=== PATIENT | female | born 1990 | race Caucasian/White ===

== ENCOUNTER → 2016-08-21 | Outpatient (CLI) | payer OTHER ==
[~2016-08-21] MED LIST: METO100T14 PO; PRENTAB26 PO
[2016-08-21 19:27] LABS: GTGD 50 Grams
== END | disposition home or self-care (01) ==
LOC: C.LAB1850 16:06
PROVIDERS: ATTEND Obstetrics & Gynecology
DX: O16.9 Unspecified maternal hypertension, unspecified trimester (principal)

== ENCOUNTER → 2016-11-13 | Outpatient (CLI) | payer OTHER ==
[2016-11-13 17:38] LABS: HEMATOCRIT 36.7 % (37-47)
[2016-11-13 18:36] LABS: GTGD 50 Grams
== END | disposition home or self-care (01) ==
LOC: C.LAB1850 15:55
PROVIDERS: ATTEND Obstetrics & Gynecology
DX: O16.3 Unspecified maternal hypertension, third trimester (principal)

== ENCOUNTER → 2016-11-13 | Outpatient (CLI) | payer OTHER ==
[2016-11-13 19:42] LABS: URINE APPEARANCE CLEAR (CLEAR); URINE BILIRUBIN NEG (NEG); URINE COLOR YELLOW; URINE EPITHELIAL CELL AUTO >30 /lpf (0-5); URINE NITRITE NEG (NEG); URINE PH 6.5 (4.5-7.5); UROBILINOGEN NEG (NEG)
[2016-11-13 19:46] LABS: MANUAL MICROSCOPIC REQUIRED? NO; REVIEW REQ? NO
== END | disposition home or self-care (01) ==
LOC: C.LABSPEC 17:41
PROVIDERS: ATTEND Obstetrics & Gynecology
DX: O16.3 Unspecified maternal hypertension, third trimester (principal)

== ENCOUNTER → 2016-11-20 | Outpatient (CLI) | payer OTHER ==
[2016-11-20 18:39] LABS: URINE TOTAL PROTEIN 6.2 mg/dl (0-11.9)
[2016-11-20 19:47] LABS: CREATININE 0.62 mg/dl (0.6-1.2); URINE TOTAL PROTEIN CALC 117.8 mg/24 hr (0-149.1)
== END | disposition home or self-care (01) ==
LOC: C.LABPVFM 13:19
PROVIDERS: ATTEND Obstetrics & Gynecology
DX: O16.3 Unspecified maternal hypertension, third trimester (principal); Z3A.00 Weeks of gestation of pregnancy not specified

== ENCOUNTER → 2017-01-08 | Outpatient (CLI) | payer OTHER | END | disposition home or self-care (01) | LOC: C.LABSPEC 17:39 | PROVIDERS: ATTEND Obstetrics & Gynecology | DX: O09.93 Supervision of high risk pregnancy, unspecified, third trimester (principal); Z3A.00 Weeks of gestation of pregnancy not specified ==

== ENCOUNTER 2017-01-30 06:47 | Inpatient (IN) | payer OTHER ==
[~2017-01-30] VITALS: Ht 160 cm; Wt 125.0 kg
[2017-01-30] MEDS ORDERED: BUPIVACAINE 0.25% 30 ML VIAL ONE (07:22)
[2017-01-30] MEDS ORDERED: FENTANYL 2MCG/ML ROPIV 1.25MG/ML 100ML BAG EPI ONE (07:22)
[2017-01-30] MEDS ORDERED: EpHEDrine SULFATE INJ 50 MG/ML AMP ONE (07:22)
[2017-01-30 07:32] LABS: BASO % 0.2 %; BASO ABS # 0.02 K/uL (0-0.2); EOS % 0.8 %; HEMATOCRIT 37.6 % (37-47); IG% 0.4 %; LYMPH ABS # 2.28 K/uL (1.2-3.4); MEAN CORPUSCULAR HEMOGLOBIN 31.6 pg (25-34); MEAN PLATELET VOLUME 11.7 fL (7.4-10.4); NEUT % 66.6 %; PLATELET COUNT 197 K/uL (130-400); RED BLOOD COUNT 4.18 M/uL (4.2-5.4); WHITE BLOOD COUNT 9.93 K/uL (4.8-10.8)
[2017-01-30] MEDS: FENTANYL CITRATE INJ 50 MCG/1 ML 2 ML VIAL ONE ×2 (07:33→08:07)
[2017-01-30] MEDS: LACTATED RINGER'S 1000ML 1,000 ML IV SCH ×2 (07:33→09:56)
[2017-01-30] MEDS ORDERED: LABETALOL HCL IV 5 MG/ML 20ML IV PRN (07:45)
[2017-01-30 07:51] LABS: ALT/SGPT 17 U/L (12-78); BLOOD UREA NITROGEN 15 mg/dl (7-18); BUN/CREATININE RATIO 18.8 (10-20); CALCIUM 9.1 mg/dl (8.5-10.1); CARBON DIOXIDE 18 mmol/L (21-32); CHLORIDE 107 mmol/L (98-107); CREATININE 0.77 mg/dl (0.60-1.20); GLUCOSE 90 mg/dl (70-99); POTASSIUM 3.6 mmol/L (3.5-5.1); SODIUM 138 mmol/L (136-145)
[2017-01-30 07:54] LABS: ALB/GLOB RATIO 0.8 (0.9-2); ALKALINE PHOSPHATASE 134 U/L (45-117); AST/SGOT 16 U/L (15-37)
[2017-01-30 08:20] VITALS: Ht 160 cm; Wt 125.0 kg
[2017-01-30 08:46] LABS: COMPLETE YES; MEAN CORPUSCULAR HGB CONC 35.1 g/dl (32-36)
[2017-01-30] MEDS ORDERED: LACTATED RINGER'S 1000ML 500 ML IV PRN (09:14)
[2017-01-30] MEDS ORDERED: NALOXONE HCL INJ 1 MG in SODIUM CHLORIDE 0.9% 1000ML 1,000 ML IV PRN (09:14)
[2017-01-30] MEDS ORDERED: ONDANSETRON INJ 2 MG/ML 2 ML VIAL IV PRN (09:15)
[2017-01-30] MEDS ORDERED: NALOXONE HCL INJ 0.4 MG/1 ML VIAL/CARP IV PRN (09:15)
[2017-01-30] MEDS ORDERED: NALBUPHINE HCL INJ 10 MG/ML AMP IV PRN (09:15)
[2017-01-30] MEDS ORDERED: FENTANYL 2MCG/ML ROPIV 1.25MG/ML 100ML BAG EPI PRN (09:15)
[2017-01-30] MEDS ORDERED: PROMETHAZINE HCL INJ 6.25 MG in SODIUM CHLORIDE 0.9% 50ML 50 ML IV PRN (09:15)
[2017-01-30] MEDS ORDERED: EpHEDrine SULFATE INJ 50 MG/ML AMP IV PRN (09:15)
[2017-01-30] MEDS ORDERED: DiphenhydrAMINE HCL 50 MG/ML VIAL IV PRN (09:15)
--- NOTE | 2017-01-30 09:52 | Medical Student: [facility] ---
Medical Student Progress Note Date of Service Jan 30, 2017. Progress Note Kathy is a 26 year old with an BANDAR of 02/04/17 who presented this morning at 0615 for contractions. She is doing well and has received an epidural. Cx is 8.5/100/+[address] Dunn. FHM shows a baseline heart rate of 145 bpm. Moderate variability. No accels or decels present. [place] shows contractions occurring every 4 minutes.
[2017-01-30] MEDS ORDERED: OXYTOCIN 30 UNITS/500ML NSS IV ONE (12:16)
[2017-01-30] MEDS ORDERED: BENZOCAINE 20% AER SPR 82.5 GM CAN EXT PRN (13:00)
[2017-01-30] MEDS ORDERED: HYDROCORTISONE ACETATE 25 MG SUPP PR PRN (13:00)
[2017-01-30] MEDS ORDERED: OXYCODONE/ACETAMINOPHEN 5-325 TAB PO PRN (13:00)
[2017-01-30] MEDS ORDERED: IBUPROFEN 600 MG TAB PO PRN (13:00)
[2017-01-30] MEDS ORDERED: OXYTOCIN 30 UNITS/500ML NSS IV PRN (13:00)
[2017-01-30] MEDS ORDERED: SUPERCREAM 0.870 % 15GM JAR EXT PRN (13:00)
[2017-01-30] MEDS ORDERED: LANOLIN OINT EXT PRN ×2 (13:00)
--- NOTE | 2017-01-30 13:39 | DELIVERY SUMMARY ---
DATE OF OPERATION: 01/30/2017 DELIVERING SURGEON: Dr. Dunn. PRE-DELIVERY DIAGNOSES: 1. Term intrauterine . 2. Chronic hypertension. 3. Spontaneous labor. POST-DELIVERY DIAGNOSES: Same. PROCEDURE: Spontaneous vaginal delivery and repair of first degree peroneal and periurethral lacerations. ESTIMATED BLOOD LOSS: 300 mL. FINDINGS: Viable male with Apgars 9 and 10, weight pending. Please see nursery records. DESCRIPTION OF DELIVERY: The patient progressed to complete with epidural anesthesia and began to push. She spontaneously vaginally delivered a viable male from the cephalic presentation. The head delivered in left occiput anterior position followed by the anterior then posterior shoulders then body. The baby was placed on mother's abdomen where the umbilical cord was noted to be short so therefore the cord was doubly clamped and cut immediately. Cord blood was obtained. The placenta then delivered spontaneously intact with a 3-vessel cord. The uterus became firm. Pitocin was given. The vagina and uterus were stripped of all clots and debris. The cervix, vagina, and perineum were inspected and a first degree laceration as well as periurethral laceration were noted. These were repaired in standard fashion with 3-0 Vicryl in the perineal laceration and 4-0 Vicryl at the periurethral. The periurethral laceration was repaired with a red rubber catheter in the urethra to note correct anatomy. Excellent hemostasis was achieved. The mother and baby tolerated the delivery well. Sponge, instrument and needle counts were correct x2 at the conclusion of the delivery. I attest to the content of the Intraoperative Record and any orders documented therein. Any exception s are noted below.
--- NOTE | 2017-01-30 13:47 | Anesthesia Procedure Note ---
Anesthesia Epidural Removal Nt Date & Time Jan 30, 2017 at 13:47 Vital Signs Pain Intensity: 0.0 Notes Mental Status: alert / awake / arousable, participated in evaluation Nausea / Vomiting: adequately controlled Pain: adequately controlled Airway Patency, RR, SpO2: stable & adequate BP & HR: stable & adequate Hydration State: stable & adequate Neuraxial Anesthesia: was administered Anesthetic Complications: no major complications apparent, pt satisfied with anesthetic care Epidural: removed without complications, with tip intact
[2017-01-30 16:05] VITALS: BP 136/82; PULSE 106; TEMP 36.9
--- NOTE | 2017-01-30 19:02 | Medical Student: [facility] ---
Medical Student Delivery Note Kathy is a 26 yo F at 39 and 2/7 weeks with BANDAR of 02/04/2017 who presents with chronic hypertension during and contractions. Pt received epidural anesthesia for pain control and began pushing after becoming completely dilated and effaced. A viable with a left occiput anterior presentation was born. Baby was placed on mother's chest and cleaned. A short cord was seen, and it was doubly clamped and cut by the father of the baby. Cord blood was obtained. A three-cord placenta was delivered with uterine massage and gentle downward traction. Mother suffered a first degree perineal laceration repaired with 3-0 Vicryl and periurethral lacerations repaired with 4 -0 Vicryl. A catheter was placed to ensure there was no inadvertent injury to urethra and bladder. Hemostasis achieved with continued uterine massage and pitocin administration. EBL 300cc. scores were 9 and 10. Mother and baby did well and are recovering. Sponge and instrument counts were correct.
[2017-01-30 20:05] VITALS: BP 124/87; PULSE 84; TEMP 36.8
[2017-01-30] MEDS: DOCUSATE SODIUM 100 MG CAP PO SCH (20:06)
[2017-01-30 23:40] VITALS: BP 131/84; PULSE 88; TEMP 36.5
[2017-01-31 03:30] VITALS: BP 118/79; PULSE 83; TEMP 36.8
--- NOTE | 2017-01-31 06:55 | OB/GYN Progress Note ---
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 Subjective conversation w/ patient, physical exam, chart review, lab review Ambulation: limited ambulation (to bathroom) Voiding: no voiding problems Passing Gas: Yes Diet Tolerance: Regular Diet Lochia: Small Feeding Type: Bottle Feeding Pain: Says feels "sore", denies pain/cramping Review of Systems Constitutional: No fever, No chills Respiratory: No cough, No shortness of breath Cardiac: No chest pain Abdomen: No nausea, No vomiting, No diarrhea Female : No dysuria Objective Vital Signs Date Time Temp Pulse Resp B/P (MAP) Pulse Ox O2 Delivery O2 Flow Rate FiO2 01/31/17 03:30 36.8 83 16 118/79 (92) 01/30/17 23:40 36.5 88 18 131/84 (100) 01/30/17 23:40 Room Air 01/30/17 20:05 36.8 84 18 124/87 (99) 01/30/17 16:05 Room Air 01/30/17 16:05 36.9 106 20 136/82 (100) Room Air Physical Exam General Appearance: WELL-APPEARING, WD/WN, NO APPARENT DISTRESS Respiratory/Chest: lungs clear, normal breath sounds Cardiovascular: regular rate, rhythm Abdomen: normal bowel sounds, non tender, soft Fundus: Firm, Non-Tender, Relation to Umbilicus (approx at umbilicus) Extremities: normal range of motion, non-tender, no pedal edema, no calf tenderness Laboratory Results Last 24 Hours Test 01/30/17 07:19 01/31/17 04:44 White Blood Count 9.93 K/uL Red Blood Count 4.18 M/uL Hemoglobin 13.2 g/dL Hematocrit 37.6 % Mean Corpuscular Volume 90.0 fL Mean Corpuscular Hemoglobin 31.6 pg Mean Corpuscular Hemoglobin Concent 35.1 g/dl Platelet Count 197 K/uL Mean Platelet Volume 11.7 fL Neutrophils (%) (Auto) 66.6 % Lymphocytes (%) (Auto) 23.0 % Monocytes (%) (Auto) 9.0 % Eosinophils (%) (Auto) 0.8 % Basophils (%) (Auto) 0.2 % Neutrophils # (Auto) 6.62 K/uL Lymphocytes # (Auto) 2.28 K/uL Monocytes # (Auto) 0.89 K/uL Eosinophils # (Auto) 0.08 K/uL Basophils # (Auto) 0.02 K/uL RDW Standard Deviation 43.6 fL RDW Coefficient of Variation 13.4 % Immature Granulocyte % (Auto) 0.4 % Immature Granulocyte # (Auto) 0.04 K/uL Sodium Level 138 mmol/L Potassium Level 3.6 mmol/L Chloride Level 107 mmol/L Carbon Dioxide Level 18 mmol/L Anion Gap 13.0 mmol/L Blood Urea Nitrogen 15 mg/dl Creatinine 0.77 mg/dl Estimated GFR () 122.6 Estimated GFR (Non- 105.8 BUN/Creatinine Ratio 18.8 Random Glucose 90 mg/dl Calcium Level 9.1 mg/dl Total Bilirubin 0.4 mg/dl Direct Bilirubin < 0.1 mg/dl Aspartate Amino Transf (AST/SGOT) 16 U/L Alanine Aminotransferase (ALT/SGPT) 17 U/L Alkaline Phosphatase 134 U/L Total Protein 7.0 gm/dl Albumin 3.0 gm/dl Globulin 4.0 gm/dl Albumin/Globulin Ratio 0.8 Assessment and Plan Post- Day Number: 1 Continue Routine Care: 26yo s/p , now PPD #1. - Blood type O positive. GBS negative. Rubella immune. - Vital signs reviewed and stable. Will discuss resumption of metoprolol at AM rounds. - Pt says is sore, not enough to require PO pain meds. - No leg swelling or tenderness on calf palpation. Encourage ambulation. - Pt plans on bottle feeding only. - Hemoglobin pre-delivery 13.2, post-delivery pending this am. Bleeding has improved. Continue to monitor clinically. - Continue routine post-vaginal delivery care. - Pt agreed with above plan, all current questions answered. Malcolm Sanchez MD, PGY1 Claims Technician Physician Supervision Note: I was present with Dr. Sanchez during the history and exam. I discussed the case with the resident and agree with the findings and plan as documented in the note. Any exceptions or clarifications are listed here: PPD#1 doing well. Was on metoprolol 200mg QD prior to delivery for cHTN as prescribed by PCP. Since patient's blood pressures have been 110's-130s/80s after delivery, I am hesitant to give her this in the immediate period, for concern of dropping her blood pressure. Will plan to watch blood pressure throughout the day today and make decision whether to recommend BP meds today. Patient will get in to see PCP this week for further BP management. Documented By: Abigail Dunn Resident Tracking Resident Involvement: Resident Care Provided Care Provided: OB Delivery (morning rounds)
[2017-01-31 07:20] LABS: HEMATOCRIT 32.6 % (37-47)
[2017-01-31 07:38] VITALS: BP 129/86; PULSE 84; TEMP 36.3; O2SAT 98
--- NOTE | 2017-01-31 07:41 | Discharge Instructions ---
Discharge Instructions Date of Service Jan 31, 2017. Admission Reason for Admission: Chronic Hypertension, Discharge Discharge Diagnosis / Problem: Recovery from vaginal delivery Discharge Goals Goal(s): Routine recovery after delivery Medications Continue Dispensed Medications: supercream, dermaplast, tucks, lansinoh Activity Recommendations Activity Limitations: per Instructions/Follow-up section . Instructions / Follow-Up Instructions / Follow-Up Please follow up with your primary care provider as soon as possible for ongoing blood pressure management ACTIVITY RECOMMENDATIONS: * Gradual return to full activity over the next 2-3 weeks. * No lifting - nothing heavier than baby over the next 2-3 weeks. * Do not engage in vigorous exercise, sexual activity or sports until cleared by your physician. * Do not drive or operate any motorized equipment until cleared by your physician. * You may shower/bathe daily. MEDICATIONS: For discomfort or pain, you may use Acetaminophen (Tylenol), Ibuprofen (Advil), or Naproxen (Aleve) following the package directions. For constipation you may use Colace following the package directions. BREAST CARE: If you are not breast feeding: * Wear a supportive bra 24 hours a day for one to two weeks. * Avoid stimulating your breasts and nipples as much as possible during the first few weeks after delivery. * When taking a shower, have the warm water hit your back, not breasts. * When your breasts feel full, apply ice packs. Usually three to four times a day helps ease the discomfort. * Take a mild pain medication (Tylenol / Motrin) when you are uncomfortable. If breast feeding: * Use breast milk to lubricate nipples. Lansinoh cream may be used for sore nipples. You do not need to remove cream prior to breast feeding. If using a different brand of cream, check the label for directions regarding removal of cream prior to nursing. * Wear a supportive bra. * If having problems with breasts or breast feeding, call a oracle security consultant or your health care provider. EPISIOTOMY CARE: After delivery, if you have an episiotomy (stitches), the following steps will ease discomfort and aid healing. * For the first 24 hours after delivery, place ice packs next to your episiotomy to help reduce swelling. * After the first 24 hour-period, sitz baths, either portable or in the tub, are suggested. A shower with a shower arm sprayed over the episiotomy may be comforting. * Brandi care should be done after each voiding and bowel movement. Squirt warm water from a plastic bottle over the perineum (region of the body between the anus and urinary opening) and pat dry. * Use Dermoplast to ease discomfort. Shake container. [place] directly over the episiotomy. Place a Tucks on a clean sanitary pad next to your episiotomy. SPECIAL CARE INSTRUCTIONS: When you are discharged from the hospital, it is important for you to follow the instructions listed below: * During the first week at home, you should be able to care for yourself and your baby. In addition, the usual light household activities are encouraged. * Limit your activities to the way you feel. Do not try to clean the house or move furniture. Be sensible. * If you actively engage in sports and have done so up until the time of your delivery, you may resume these activities as soon as you feel able. This may take up to one month or even longer. Use good judgment. * Continue to take your vitamins for at least six weeks after the of your baby. * Your diet need not be limited unless you were on a special diet before your delivery. Breast-feeding mothers need around 2500 calories per day and at least 64-80 ounces of fluid per day (8 to 10 glasses). * You should eat foods from the four major food groups. Crash diets or fad diets are to be avoided. Eating lean meats, fresh fruits and vegetables, low-fat dairy products, high fiber foods and a regular exercise program, will help you get back to your pre- weight without putting your health at risk. * Constipation is sometimes a problem after delivery. Take a mild laxative as needed. If breast feeding, Milk of Magnesia is acceptable to use. You may use a suppository or Fleets enema if no episiotomy. * A daily shower or tub bath is suggested. Be sure to thoroughly and gently dry the perineum. * A bloody vaginal discharge will usually continue until around four weeks post . A small amount of bleeding may continue for as long as six weeks. Vaginal discharge changes from the bright red bleeding after delivery to pink then brownish and finally yellowish-pink before becoming white and disappearing. * Bleeding may increase with activity. Your first period may come in 4-8 weeks. If you are breast feeding, your period may be delayed even longer. * [place] (sex) can begin whenever both you and your partner feel comfortable and do not have any form of genital infection. It is recommended that you wait at least six weeks for internal and external healing to occur. If you have questions, please talk to your health care practitioner. A condom should be used to prevent infection and . * Foreplay, gentle intercourse and lubrication is very important the first several times to prevent pain. A water-based lubricant such as K-Y jelly or Astroglide may be used. * If you have RH negative blood and your baby is RH positive, you will receive RHOGAM by injection prior to discharge. The nurse will give you a card to keep with you that has the date and place that you received RHOGAM after delivery. * During your care, you had a Rubella screen done to check for the presence of rubella antibodies in your blood. If your test was negative, you will receive a Rubella vaccine prior to discharge. This vaccine may cause a fever, soreness at the injection site and flu-like symptoms. If these symptoms persist, notify your health care practitioner. is not advised for one month after a Rubella vaccine. * Verbalizes understanding of car seat law as reviewed with patient nursing. * Car Seat hand-out given and reviewed with patient by nursing. * Shaken baby information reviewed with patient by nursing. Call you doctor if: * Heavy bleeding (saturating several pads an hour) or passing clots the size of your fist. * A fever >101 degrees F (38.3 degrees C) on two occasions four hours apart and /or chills. * Unusual pain in the pelvic or vaginal areas. * "Baby Blues" lasting longer than two weeks. If you have any questions or concerns, call your health care practitioner at . FOLLOW UP VISIT: * Please call the office at to schedule a 6 week examination. It is important you keep this appointment. It is important for you to make arrangements for either yearly or twice yearly check-ups thereafter. Current Hospital Diet Patient's current hospital diet: Regular OB Diet Discharge Diet Recommended Diet: Regular OB Diet Pending Studies Studies pending at discharge: no Medical Emergencies . Who to Call and When: Medical Emergencies: If at any time you feel your situation is an emergency, please call 911 immediately. . Non-Emergent Contact Non-Emergency issues call your: Facility Operations Manager . . "Provider Documentation" section prepared by Malcolm Sanchez. . VTE Core Measure Inpt VTE Proph given/why not?: Treatment not indicated
[2017-01-31] MEDS: DOCUSATE SODIUM 100 MG CAP PO SCH ×2 (07:47→20:04)
[2017-01-31 11:12] VITALS: BP 118/77; PULSE 88; TEMP 36.6; O2SAT 97
[2017-01-31 15:50] VITALS: BP 138/86; PULSE 85; TEMP 36.9; O2SAT 98
[2017-01-31 19:20] VITALS: BP 135/82; PULSE 101
[2017-01-31] MEDS ORDERED: BISACODYL 5 MG TABEC PO SCH (20:00)
[2017-01-31 20:55] VITALS: BP 136/84; PULSE 87; TEMP 36.7
[2017-02-01 03:07] VITALS: BP 130/84; PULSE 80
[2017-02-01 07:30] VITALS: BP 131/88; PULSE 86; TEMP 36.5
[2017-02-01] MEDS: DOCUSATE SODIUM 100 MG CAP PO SCH (07:42)
--- NOTE | 2017-02-01 09:34 | Progress Note ---
Subjective Feb 01, 2017. Subjective conversation w/ patient, physical exam Ambulation: ambulating normally Voiding: no voiding problems Passing Gas: Yes Diet Tolerance: Regular Diet Lochia: Moderate Feeding Type: Breast Feeding Review of Systems Constitutional: No fever, No chills Respiratory: No cough Cardiac: No chest pain Objective Vital Signs Date Time Temp Pulse Resp B/P (MAP) Pulse Ox O2 Delivery O2 Flow Rate FiO2 02/01/17 07:30 36.5 86 20 131/88 (102) 02/01/17 03:07 80 130/84 (99) 01/31/17 20:55 36.7 87 18 136/84 (101) Room Air 01/31/17 20:55 Room Air 01/31/17 19:20 101 135/82 (99) 01/31/17 15:50 98 Room Air 01/31/17 15:50 36.9 85 18 138/86 (103) 98 Room Air 01/31/17 11:12 36.6 88 18 118/77 (91) 97 Room Air Physical Exam General Appearance: WELL-APPEARING, NO APPARENT DISTRESS Respiratory/Chest: no respiratory distress, no accessory muscle use Cardiovascular: no edema Abdomen: non tender, soft Fundus: Firm Extremities: no pedal edema, no calf tenderness Assessment and Plan Post- Day#: 2
[2017-02-01 10:48] VITALS: BP_DIAS 88; PULSE 86; TEMP 36.5
== END 2017-02-01 11:20 | disposition home or self-care (01) | DRG 774 ==
LOC: C.OPB 06:47 → C.LD 06:47 → C.OPB 07:13 → C.OBG 16:02
PROVIDERS: ADMIT Obstetrics & Gynecology; ATTEND Obstetrics & Gynecology
PROC: 10E0XZZ Delivery of Products of Conception, External Approach (ICD-10-PCS; principal; 2017-01-30)
PROC: 0UQMXZZ Repair Vulva, External Approach (ICD-10-PCS; principal; 2017-01-30)
PROC: 0HQ9XZZ Repair Perineum Skin, External Approach (ICD-10-PCS; principal; 2017-01-30)
DX: O10.92 Unspecified pre-existing hypertension complicating childbirth (principal); O70.0 First degree perineal laceration during delivery; O71.82 Other specified trauma to perineum and vulva; Z3A.39 39 weeks gestation of pregnancy; Z79.899 Other long term (current) drug therapy; Z37.0 Single live birth

== ENCOUNTER → 2017-07-02 | Outpatient (CLI) | payer OTHER ==
[~2017-07-02] MED LIST changes: -METO100T14 PO
[2017-07-02 09:53] LABS: BLOOD UREA NITROGEN 12 mg/dl (7-18); BUN/CREATININE RATIO 19.2 (10-20); CALCIUM 9.1 mg/dl (8.5-10.1); CARBON DIOXIDE 26 mmol/L (21-32); CHLORIDE 106 mmol/L (98-107); CREATININE 0.63 mg/dl (0.60-1.20); GLUCOSE 100 mg/dl (70-99); POTASSIUM 3.7 mmol/L (3.5-5.1); SODIUM 137 mmol/L (136-145)
[2017-07-02 09:56] LABS: CHOLESTEROL 160 mg/dl (0-200); CHOLESTEROL/HDL RATIO 4.1; HDL CHOLESTEROL 39 mg/dl; LDL CHOLESTEROL CALCULATED 93 mg/dl; TRIGLYCERIDES 140 mg/dl (0-150); VERY LOW DENSITY LIPOPROT CALC 28 mg/dl
== END | disposition home or self-care (01) ==
LOC: C.LAB 07:58
PROVIDERS: ATTEND Family Medicine
DX: I10 Essential (primary) hypertension (principal)